=== PATIENT | female | born 1925 | race Caucasian/White ===

== ENCOUNTER 2016-09-23 21:03 | Inpatient (IN) | payer OTHER ==
--- NOTE | ~2016-09-23 | HP ---
History And Physical [address] [facility] [place]. [address] NAME: MOO WILKES : [birth year] STATUS : ADM Gilbert PAT#: [id number] AGE: 89 ADM/REG DATE : 09/24/16 MR#: [id number] REPORT SERV DATE: 09/24/16 DICTATED BY: HEYDI MCADAMS DATE: 09/24/16 REPORT STATUS : Draft TRANSCRIBED BY: MODElizabeth DATE: 09/24/16 DATE OF ADMISSION: 09/24/2016 CHIEF COMPLAINT: Congestion with cough, green sputum, and occasional hemoptysis. HISTORY OF PRESENT ILLNESS: The patient is an 89-year-old female with past medical history of polymyalgia rheumatica, hypertension, sick sinus syndrome with pacer, and atrial fibrillation history on chronic Xarelto, who presents after having one-week history of shortness of breath that is still currently present, noted to have head, chest, cough, and cold. The patient reports that these symptoms occurred after she was sweeping her porch and had heavy pollen burden. Symptoms are intermittent, moderate severity, but occasional dull discomfort. No radiating symptoms. Does have mild headache, but no nausea or vomiting. No diaphoresis. Does have shortness of breath. No fevers. Does have mild weakness with cough and wheezing. No swelling, redness, dizziness, or palpitations. Did have episodes of hemoptysis. Symptoms worsen with breathing, relieved by nothing. Symptoms are still currently present and still having green sputum. The patient was started on Z-Dannie yesterday, but still had progressive decline. REVIEW OF SYSTEMS: GENERAL: No fevers, but mild chills. EYES: No visual change or pain. ENT: Does have congestion. No sore throat. Mild sinus drainage. NEURO: Mild headache, but no vertigo. SKIN: No rashes or bruising. RESPIRATORY: Does have shortness of breath, hemoptysis, cough, sputum, and wheeze. CV: No chest discomfort. No palpitations or edema. GI: No nausea, vomiting, or diarrhea. : No dysuria or hematuria reported. MUSCULOSKELETAL: No myalgias, arthralgias, or back pain. ENDO: Increased fatigue. No polyuria. HEME: Has bleeding and cough, but no bruising. IMMUNOLOGIC: No rhinorrhea. Did have environmental allergies. PSYCH: No anxiety or confusion. PAST MEDICAL HISTORY: Hypertension, PMR, anemia, urinary incontinence, anxiety, sick sinus syndrome, atrial fibrillation. SURGICAL HISTORY: Left-sided pacer, rectocele and cystocele repair, appendectomy, hysterectomy, and cholecystectomy. ALLERGIES: NOTED FOR ELIQUIS. SOCIAL HISTORY: . Exercises daily. Two sons and one daughter. Accompanied by daughter and son-in-law at bedside. Never smoker, alcohol, or illicits. FAMILY HISTORY: Stroke and heart disease. She has #13 of 14 children. History And Physical [address] [place]. [address] NAME: MOO WILKES : [birth year] STATUS : ADM Gilbert PAT#: [id number] AGE: 89 ADM/REG DATE : 09/24/16 MR#: [id number] REPORT SERV DATE: 09/24/16 DICTATED BY: HEYDI MCADAMS DATE: 09/24/16 REPORT STATUS : Draft TRANSCRIBED BY: PORSCHE DATE: 09/24/16 HOME MEDICATIONS: Xanax, amlodipine, artificial tears, Z-Dannie recently started yesterday, Caltrate, hydralazine, Hyzaar, multivitamin, raloxifene, MiraLAX, Xarelto, and Zoloft. PHYSICAL EXAMINATION: VITAL SIGNS: Blood pressure 159/67, temperature 98.1, pulse 78, respirations 18, O2 saturations 95% on room air. GENERAL: In no acute distress. Calm, pleasant, well developed, well nourished, elderly. EYES: No scleral icterus. EOMI. Mildly pale conjunctivae. ENT: Nares patent. Tongue midline. Moist mucous membranes. No posterior cobblestoning. RESPIRATORY: End-expiratory wheeze with polyphonic breath sounds particularly in lower lung anne. Chest wall, equal chest expansion. No increased AP diameter. CV: Regular rate. No rubs or gallops. No pedal edema. GI: Soft, nontender, nondistended. Bowel sounds positive. : Deferred. MUSCULOSKELETAL: Moves all extremities x4. Symmetrical handgrip strength. SKIN: Warm and dry. LYMPH: No cervical or supraclavicular lymphadenopathy grossly. HEME: No bleeding or bruising on skin. NEURO: Alert and oriented. Symmetrical strength. Sensation is grossly intact bilaterally upper and lower extremities. Symmetrical smile and tongue midline. PSYCH: Appropriate mood and affect. Very pleasant. IMAGING: CT scan, multifocal small patchy infiltrates bilateral upper lobe and very small nodular infiltrates right middle lobe. Patchy infiltrates posterior right lung base suggesting multifocal bronchopneumonia versus possible focal areas of pulmonary hemorrhage given clinical Xarelto, largest individual focal infiltrate, left upper lobe 2.5 cm diameter. No discrete endobronchial lesions. Trace bilateral pleural effusions. Small 3.1 cm hiatal hernia. Procalcitonin negative. Sodium 139, potassium 4.2, chloride 102, bicarb 27, BUN and creatinine 23 and 0.92, glucose 108, magnesium 2.4, calcium 8.4, troponin negative, lactate 0.7, BNP 293.4, WBC 9.8, H and H 9.1 and 26.7 with platelets of 322. INR 1.4. EKG, normal sinus rhythm with a rate of 77, QTc 450. ASSESSMENT AND PLAN: 1. Community-acquired pneumonia. 2. Paroxysmal atrial fibrillation. 3. Hemoptysis. 4. Hypertension. 5. Sick sinus syndrome. 6. Polymyalgia rheumatica. 7. Anemia. 8. Elevated BNP. PLAN: 1. For community-acquired pneumonia, azithromycin and Rocephin given and started in the emergency room. CURB-65 score of 2 processed to 28% mortality. Positive hemoptysis, on Xarelto, hold at this time. CT imaging noted. Due to complex CT with multilobar History And Physical [address] [address] NAME: MOO WILKES : [birth year] STATUS : ADM Gilbert PAT#: [id number] AGE: 89 ADM/REG DATE : 09/24/16 MR#: [id number] REPORT SERV DATE: 09/24/16 DICTATED BY: HEYDI MCADAMS DATE: 09/24/16 REPORT STATUS : Draft TRANSCRIBED BY: MODL DATE: 09/24/16 involvement, we will ask Pulmonary evaluation. Is not currently having acute hemorrhaging or hemoptysis today, is somewhat anemic than prior. We will continue supportive treatment. Additionally, has been given steroids in the emergency room, but appears to have had somewhat of a reaction to steroids per Cardiology notes in the past. We will defer continued steroids to Pulmonary in a.m., as the patient does have end-expiratory wheeze. Flutter valve to be started. DuoNebs as needed. 2. Paroxysmal atrial fibrillation. Hold Xarelto. Normal sinus rhythm currently. 3. Hemoptysis likely secondary to community-acquired pneumonia. CT concerning for questionable hemorrhage. Clinically, vital signs remained stable. The patient has not had any hemoptysis today. Monitor H and H. Type and cross. We will have if hemoglobin becomes less than 8. 4. Hypertension. Continue home medication. 5. Sick sinus syndrome. Pacer has been placed by Dr. Poole in the past. 6. PMR. Continue home medications. Family reports stable for many years. 7. Anemia. Monitor H and H. The patient does have chronic history of anemia. 8. Elevated BNP. Has been previously elevated in the past. Prior echocardiogram did show EF of 66% with history of . All questions answered with the patient and family at bedside. DISPOSITION: Pending response to above treatment and Pulmonary evaluation. We will additionally have O2 ambulating trial in a.m. DDN/MODL Heydi Mcadams MD / [id number] CC: Hung Robertson
--- NOTE | ~2016-09-23 | DS ---
Discharge Summary [facility] [address] [place]. [address] NAME: MOO WILKES : [birth year] STATUS : DIS IN PAT#: [id number] AGE: 89 ADM/REG DATE : 09/24/16 MR#: [id number] REPORT SERV DATE: 09/28/16 DICTATED BY: TOMASA BENITO DATE: 09/27/16 REPORT STATUS : Draft TRANSCRIBED BY: MODL DATE: 09/27/16 ADMISSION DATE: 09/24/2016 DISCHARGE DATE: 09/27/2016 CONSULTANTS: Pietro Jose M.D., Pulmonary. DISCHARGE DIAGNOSES: 1. Multifocal community-acquired pneumonia versus hemoptysis. 2. Paroxysmal atrial fibrillation with sick sinus syndrome and pacemaker in place. 3. Hypertension. 4. History of polymyalgia rheumatica. 5. Generalized anxiety disorder. 6. Mild aortic stenosis by history with aortic valve area 1.8 sq cm. 7. Chronic normocytic anemia. HISTORY: This patient had about a week of shortness of breath, some chest heaviness, cough. She reports these symptoms were worse after she swept her porch where there was a lot of pollen. She did notice a small amount of hemoptysis with her sputum being also green. She reportedly was given Z-Dannie by her outpatient provider. She came to the emergency room at [facility] for these symptoms, and a CTA of the chest was performed. There was no evidence of pulmonary embolism, but she did have multifocal small patchy infiltrates bilateral upper lobe, very small nodular infiltrate right middle lobe, patchy infiltrate posterior right lung base suggesting multifocal bronchopneumonia versus possibility of focal areas of pulmonary hemorrhage. Largest infiltrate with left upper lobe 2.5 cm in diameter. No discrete endobronchial lesion noted. Trace bilateral pleural effusion. Small 3.1 cm hiatal hernia was noted She was referred to our team for inpatient care. She was started on Rocephin and azithromycin, and the ER gave her a dose of Solu-Medrol intravenously. Procalcitonin was undetectable on 09/23/2016. Two blood cultures, no growth. Urine culture less than a 1000 mixed netta. Sputum had rare gram-positive cocci, rare gram-negative bacilli. Followup chest x-ray on 09/24/2016 showed no acute cardiopulmonary disease. Stable pacemaker. Xarelto was held for several days. She had no more hemoptysis. Her urine strep antigen was negative. She had no further fever. She was not dyspneic. She felt significantly better. Pulmonary saw her and had no further recommendations other than to see their nurse practitioner, Puja Oglesby, with Dr. Jose in approximately 2 weeks. The patient's room air O2 saturation staying 93 to 96. She was ambulatory and asymptomatic. She follows up with chaperone, Dr. Davis, for her pacemaker evaluations and her mild aortic stenosis. The last echocardiogram I could find was 06/23/2014 showing mild aortic stenosis with aortic valve area 1.8 sq cm, left ventricular ejection fraction 66%, left atrium 3.8 cm. DISCHARGE MEDICATIONS: Include: Norvasc 10 mg daily, Hyzaar 100/12.5 one every morning (her potassium here was 4.0 and creatinine 0.68), multivitamin once a day, Relafen 500 mg b.i.d. Discharge Summary [address] [address] NAME: MOO WILKES : [birth year] STATUS : DIS IN PAT#: [id number] AGE: 89 ADM/REG DATE : 09/24/16 MR#: [id number] REPORT SERV DATE: 09/28/16 DICTATED BY: TOMASA BENITO DATE: 09/27/16 REPORT STATUS : Draft TRANSCRIBED BY: PORSCHE DATE: 09/27/16 which I have advised her to take only p.r.n. given her age and the risk for renal dysfunction and heart failure, MiraLAX 17 g packet daily, Xarelto 20 mg daily was restarted on 09/26/2016, Zoloft 100 mg at bedtime, hydralazine 50 mg t.i.d., Tylenol 650 q.4 hours p.r.n. pain, Xanax 1 mg at bedtime as needed for anxiety or insomnia, artificial tears p.r.n., Caltrate 600 mg twice a day. She should follow up with PCP, Dr. Kings Owens, in one week and nurse practitioner, Puja Oglesby, with Dr. Jose in approximately 2 weeks. I spent 34 minutes today with the patient and with discharge planning. OZ/PORSCHE Tomasa Benito M.D. / [id number] CC: Hung Barrera M.D. William Oellerich, M.D., Ph.D, F.A.C.C. Pietro Jose M.D.
[~2016-09-23 21:03] MED LIST: APRES25 PO; ASAB PO; CARD120 PO; CENTRUM TAB1 TAB PO; CITRACAL PO; CYANO1000T PO; ELIQUIS 5 MG TAB5 MG PO; HALF81 PO; HYDROCHLOROT12.5 MG PO; MAGNESIUM PO; MEDROLPAK4 PO; MIRALAXPKT PO; MULTIVITAMI1 PO; OCUVITE PO; OS500+D PO; PRIN10 PO; RELA5 PO; SYSTANE OPH; TIAZAC PO; VITAMIN B-122500 MCG SL; X5 PO; XANAX1 MG PO; XARELTO20 MG PO; ZOL100 PO; ZOL50 PO
[2016-09-23 21:12] LABS: BASOPHILS 0.3 %; BASOPHILS ABSOLUTE 0.03 10/3/uL (0.0-0.16); EOSINOPHILS 0.4 %; EOSINOPHILS ABSOLUTE 0.04 10/3/uL (0.0-0.53); HEMOGLOBIN 9.1 g/dL (12.0-16.0); IMMATURE GRANULOCYTES 0.5 %; IMMATURE GRANULOCYTES ABSOLUTE 0.05 10/3/uL (0.0-0.11); LYMPHOCYTES 12.9 %; LYMPHOCYTES ABSOLUTE 1.26 10/3/uL (0.67-4.30); MEAN CORPUS HGB CONC 34.1 g/dL (32.0-36.0); MEAN CORPUSCULAR HEMOGLOB 31.8 pg (26.0-34.0); MEAN CORPUSCULAR VOLUME 93.4 fL (80-100); MONOCYTES 16.4 %; NEUTROPHILS 69.5 %; NEUTROPHILS ABSOLUTE 6.77 10/3/uL (2.02-8.40); PLATELET COUNT 322 10/3/uL (150-400); RBC DISTRIBUTION WIDTH 13.4 % (12.0-16.0); RED CELL COUNT 2.86 10/6/uL (4.0-5.6)
[2016-09-23 21:15] LABS: ER CBC TAT 0 Hrs 09 Mins; HEMATOCRIT 26.7 % (36.0-48.0); MANUAL DIFF NO %; WHITE BLOOD CELLS 9.8 10/3/uL (4.5-10.5)
[2016-09-23 21:21] LABS: INTERNATIONAL NORMAL RATI 1.4 UNITS (-); PARTIAL THROMBO TIME 35.4 SEC (22.5-37.2)
[2016-09-23 21:26] LABS: PROTIME (NOT ORD) 16.8 SEC (12.0-14.5)
[2016-09-23 21:29] LABS: CALCIUM, SERUM 8.4 MG/DL (8.5-10.4); CHEST PAIN PROFILE TAT 0 Hrs 23 Mins; CHLORIDE, SERUM 102 MMOL/L (96-112); CO2 (CARBON DIOXIDE) 27 MMOL/L (24-34); CREATININE 0.92 MG/DL (0.55-1.02); GFR AFRICAN AMERICAN 64 ML/MIN (>=60); GFR NON AFRICAN AMERICAN 55 ML/MIN (>=60); GLUCOSE, SERUM 108 MG/DL (60-99); SODIUM, SERUM 139 MMOL/L (135-148); TROPONIN I <0.02 NG/ML (<0.05)
[2016-09-23 21:30] LABS: BUN (BLOOD UREA NITROGEN) 23 MG/DL (6-23); POTASSIUM, SERUM 4.2 MMOL/L (3.5-5.3)
[2016-09-23 21:47] LABS: PROCALCITONIN <0.05 ng/mL (<0.5)
[2016-09-23] MEDS ORDERED: TEARS PURE OPH (23:22)
[2016-09-23] MEDS ORDERED: Z-PAK PO (23:22)
[2016-09-23] MEDS ORDERED: CALTRA600D PO (23:23)
[2016-09-23] MEDS ORDERED: NORV10 PO (23:23)
[2016-09-23] MEDS ORDERED: MULTIVIT/MIN PO (23:23)
[2016-09-23] MEDS ORDERED: APRES50 PO (23:23)
[2016-09-23] MEDS ORDERED: XANAX1 MG PO (23:23)
[2016-09-23] MEDS ORDERED: HYZAAR1 TAB PO (23:23)
[2016-09-23] MEDS ORDERED: RELA5 PO (23:24)
[2016-09-23] MEDS ORDERED: ZOL100 PO (23:24)
[2016-09-23] MEDS ORDERED: XARELTO20 MG PO (23:24)
[2016-09-23] MEDS ORDERED: MIRALAX POWDER1 PKT PO (23:25)
[2016-09-24 08:10] LABS: BASOPHILS 0.1 %; BASOPHILS ABSOLUTE 0.01 10/3/uL (0.0-0.16); EOSINOPHILS 0 %; HEMOGLOBIN 9.9 g/dL (12.0-16.0); IMMATURE GRANULOCYTES 0.7 %; IMMATURE GRANULOCYTES ABSOLUTE 0.06 10/3/uL (0.0-0.11); LYMPHOCYTES 7.4 %; LYMPHOCYTES ABSOLUTE 0.68 10/3/uL (0.67-4.30); MEAN CORPUS HGB CONC 33.7 g/dL (32.0-36.0); MEAN CORPUSCULAR HEMOGLOB 31.2 pg (26.0-34.0); MEAN CORPUSCULAR VOLUME 92.7 fL (80-100); MEAN PLATELET VOLUME 9.8 fL (9.2-13.0); MONOCYTES 3.1 %; MONOCYTES ABSOLUTE 0.29 10/3/uL (0.21-1.20); NEUTROPHILS 88.7 %; NEUTROPHILS ABSOLUTE 8.17 10/3/uL (2.02-8.40); PLATELET COUNT 366 10/3/uL (150-400); RBC DISTRIBUTION WIDTH 13.3 % (12.0-16.0); RED CELL COUNT 3.17 10/6/uL (4.0-5.6); WHITE BLOOD CELLS 9.2 10/3/uL (4.5-10.5)
[2016-09-24 08:19] LABS: HEMATOCRIT 29.4 % (36.0-48.0); MANUAL DIFF NO %
[2016-09-24 08:21] LABS: CALCIUM, SERUM 8.5 MG/DL (8.5-10.4); CHLORIDE, SERUM 102 MMOL/L (96-112); CO2 (CARBON DIOXIDE) 25 MMOL/L (24-34); CREATININE 0.96 MG/DL (0.55-1.02); GFR AFRICAN AMERICAN 61 ML/MIN (>=60); GFR NON AFRICAN AMERICAN 52 ML/MIN (>=60); POTASSIUM, SERUM 3.5 MMOL/L (3.5-5.3); SODIUM, SERUM 138 MMOL/L (135-148)
[2016-09-24 08:23] LABS: BUN (BLOOD UREA NITROGEN) 18 MG/DL (6-23); GLUCOSE, SERUM 195 MG/DL (60-99)
[2016-09-24 17:12] LABS: ASCORBIC ACID (UR NOT ORDER) NEG (NEG); BILIRUBIN, URINE NEGATIVE (NEG); KETONE, URINE NEGATIVE (NEG); LEUKOCYTE ESTERASE(NOT OR LARGE (NEG); WBC (NOT ORDERED) (RFLEX) 21 (0-5)
[2016-09-25 07:40] LABS: BUN (BLOOD UREA NITROGEN) 16 MG/DL (6-23); CALCIUM, SERUM 8.1 MG/DL (8.5-10.4); CHLORIDE, SERUM 104 MMOL/L (96-112); CO2 (CARBON DIOXIDE) 23 MMOL/L (24-34); CREATININE 0.68 MG/DL (0.55-1.02); GFR AFRICAN AMERICAN 90 ML/MIN (>=60); GFR NON AFRICAN AMERICAN 78 ML/MIN (>=60); SODIUM, SERUM 136 MMOL/L (135-148)
[2016-09-25 07:41] LABS: GLUCOSE, SERUM 89 MG/DL (60-99)
[2016-09-25 07:52] LABS: HEMOGLOBIN 8.4 g/dL (12.0-16.0); MEAN CORPUS HGB CONC 33.5 g/dL (32.0-36.0); MEAN CORPUSCULAR VOLUME 92.6 fL (80-100); MEAN PLATELET VOLUME 10.1 fL (9.2-13.0); PLATELET COUNT 330 10/3/uL (150-400); RBC DISTRIBUTION WIDTH 13.2 % (12.0-16.0); RED CELL COUNT 2.71 10/6/uL (4.0-5.6); WHITE BLOOD CELLS 10.1 10/3/uL (4.5-10.5)
[2016-09-25 08:11] LABS: HEMATOCRIT 25.1 % (36.0-48.0); MANUAL DIFF YES %
[2016-09-25 08:13] LABS: BAND NEUTROPHILS 8 %; LYMPHOCYTES 19 %; LYMPHOCYTES ABSOLUTE (CALC) 1.92 10/3/uL (0.67-4.30); MONOCYTES 4 %; NEUTROPHILS ABSOLUTE (CALC) 7.78 10/3/uL (2.02-8.40); PLATELET ESTIMATE ADQ (ADEQUATE); RBC MORPHOLOGY NORM (NORMAL); SEGMENTED NEUTROPHIL (0) 69 %; TOTAL NUCLEATED CELLS 100
[2016-09-26 06:22] LABS: BASOPHILS 0.8 %; BASOPHILS ABSOLUTE 0.06 10/3/uL (0.0-0.16); EOSINOPHILS 1.9 %; EOSINOPHILS ABSOLUTE 0.14 10/3/uL (0.0-0.53); HEMATOCRIT 27.1 % (36.0-48.0); HEMOGLOBIN 9.2 g/dL (12.0-16.0); IMMATURE GRANULOCYTES 3.2 %; IMMATURE GRANULOCYTES ABSOLUTE 0.23 10/3/uL (0.0-0.11); LYMPHOCYTES 19.9 %; LYMPHOCYTES ABSOLUTE 1.45 10/3/uL (0.67-4.30); MEAN CORPUS HGB CONC 33.9 g/dL (32.0-36.0); MEAN CORPUSCULAR HEMOGLOB 31.5 pg (26.0-34.0); MEAN CORPUSCULAR VOLUME 92.8 fL (80-100); MEAN PLATELET VOLUME 9.9 fL (9.2-13.0); MONOCYTES 13.6 %; MONOCYTES ABSOLUTE 0.99 10/3/uL (0.21-1.20); NEUTROPHILS 60.6 %; NEUTROPHILS ABSOLUTE 4.42 10/3/uL (2.02-8.40); PLATELET COUNT 396 10/3/uL (150-400); RBC DISTRIBUTION WIDTH 13.1 % (12.0-16.0); RED CELL COUNT 2.92 10/6/uL (4.0-5.6); WHITE BLOOD CELLS 7.3 10/3/uL (4.5-10.5)
[2016-09-26 06:24] LABS: MANUAL DIFF NO %
[2016-09-27 05:30] LABS: HEMATOCRIT 28.9 % (36.0-48.0); HEMOGLOBIN 9.5 g/dL (12.0-16.0); MANUAL DIFF YES %; MEAN CORPUS HGB CONC 32.9 g/dL (32.0-36.0); MEAN CORPUSCULAR HEMOGLOB 30.7 pg (26.0-34.0); MEAN CORPUSCULAR VOLUME 93.5 fL (80-100); MEAN PLATELET VOLUME 9.7 fL (9.2-13.0); PLATELET COUNT 424 10/3/uL (150-400); RBC DISTRIBUTION WIDTH 13.2 % (12.0-16.0); RED CELL COUNT 3.09 10/6/uL (4.0-5.6); WHITE BLOOD CELLS 7.8 10/3/uL (4.5-10.5)
[2016-09-27 06:10] LABS: BAND NEUTROPHILS 4 %; EOSINOPHILS 1 %; EOSINOPHILS ABSOLUTE (CALC) 0.08 10/3/uL (0.0-0.53); IMMATURE GRANS ABSOLUTE (CALC) 0.23 10/3/uL (0.0-0.11); LYMPHOCYTES 19 %; LYMPHOCYTES ABSOLUTE (CALC) 1.48 10/3/uL (0.67-4.30); METAMYELOCYTES 3 %; MONOCYTES 9 %; SEGMENTED NEUTROPHIL (0) 64 %; TOTAL NUCLEATED CELLS 100
[2016-09-27 06:12] LABS: PLATELET ESTIMATE INC (ADEQUATE); RBC MORPHOLOGY NORM (NORMAL)
== END 2016-09-27 12:31 | disposition home or self-care (01) | DRG 194 ==
LOC: ER 21:03 → 2SO 09-24 00:27
PROVIDERS: Internal Medicine; Nurse Practitioner; Physician Assistant Medical; Student in an Organized Health Care Education/Training Program
DX: J18.9 Pneumonia, unspecified organism (principal); R04.2 Hemoptysis; I49.5 Sick sinus syndrome; M35.3 Polymyalgia rheumatica; I10 Essential (primary) hypertension; I48.0 Paroxysmal atrial fibrillation; F41.9 Anxiety disorder, unspecified; K44.9 Diaphragmatic hernia without obstruction or gangrene; I35.0 Nonrheumatic aortic (valve) stenosis; Z95.0 Presence of cardiac pacemaker; Z79.01 Long term (current) use of anticoagulants; Z98.890 Other specified postprocedural states; Z82.3 Family history of stroke; Z82.49 Family history of ischemic heart disease and other diseases of the circulatory system
CPT/HCPCS: 36415; 71010; 71275; 80048; 81001; 83605; 83735; 83880; 84145; 84484; 85025; 85610; 85730; 86850; 86870; 86900; 86901; 87040; 87070; 87086; 87205; 87449; 93005; 94640; 96374; 96375; 99285; A9270-GY; J0456; J2930; Q9967